=== PATIENT | female | born 1960 | race Two or more races ===

== ENCOUNTER → 2023-11-08 | Day surgery (SDC) | payer OTHER ==
[~2023-11-08] MED LIST: DIPHENHYDRAMINE HCL 50 MG/ML VIAL 1ML IV ONE; MIDAZOLAM HCL 2 MG/2 ML VIAL IV ONE; ONDANSETRON HCL 2 MG/ML VIAL IV ONE; fentaNYL CITRATE 50 MCG/ML AMPUL IV PUSH ONE
== END | disposition home or self-care (01) ==
LOC: ADM 11-03 13:00 → AMB-ENDOS 06:36
PROVIDERS: ATTEND Colon & Rectal Surgery
DX: K57.32 Diverticulitis of large intestine without perforation or abscess without bleeding (principal); Z20.822 Contact with and (suspected) exposure to COVID-19

== ENCOUNTER 2024-03-07 12:55 | Outpatient (CLI) | payer OTHER | END 2024-03-07 12:56 | disposition home or self-care (01) | LOC: NUCLEAR 12:55 | DX: M81.0 Age-related osteoporosis without current pathological fracture (principal) ==